=== PATIENT | male | born 1970 | race Caucasian/White ===

== ENCOUNTER 2020-08-03 08:01 | Emergency (ER) | payer SELFPAY ==
[~2020-08-03] VITALS: Ht 180.3 cm; Wt 83.9 kg
[2020-08-03 08:24] VITALS: BP 125/64
--- NOTE | 2020-08-03 08:34 | NUR ---
50 YO M BIB SELF FOR C/C OF SOB X2 WEEKS. PT TESTED + FOR COVID 2 WEEKS AGO. PT PRESENTS 97% ROOM AIR, TACCHYCARDIC AT 119. CRACKLES AUSCULATETD IN BILATERAL BASES. PT STATES 6/10 CHEST DISCOMFORT AT THIS TIME. STATES HE HAS HAD INTERMITTENT EPISODES OF N/V/D AND HAS LOST 15 POUNDS SINCE COVID SYMPTOMS BEGAN WITH LOSS OF TASTE/SMELL. BOWEL SOUNDS NORMOACTIVE THROUGHOUT. DENIES MED HX NKA
--- NOTE | 2020-08-03 10:34 | NUR ---
Patient discharged with v/s stable. Written and verbal after care instructions given and explained. Patient alert, oriented and verbalized understanding of instructions. Ambulatory with steady gait. All questions addressed prior to discharge. ID band removed. Patient advised to follow up with PMD. Rx of AZITHROMYCIN, PROMETHAZINE given. Patient educated on indication of medication including possible reaction and side effects. Opportunity to ask questions provided and answered.
== END 2020-08-03 10:34 | disposition home or self-care (01) ==
LOC: MED 08:01
DX: J18.9 Pneumonia, unspecified organism (principal); Z20.828 Contact with and (suspected) exposure to other viral communicable diseases
CPT/HCPCS: 36600; 71045; 82803; 99284